=== PATIENT | female | born 1970 | race Caucasian/White ===

== ENCOUNTER → 2017-10-04 09:41 | Outpatient (CLI) | payer BC, SELFPAY ==
--- NOTE | 2017-10-04 09:55 | XR_ITS ---
XR ankle LT min 3V HISTORY: Follow-up fracture of the fibula ITS.REASON: LT DISTAL FIB FX ORDERING PHYSICIAN: Karla Waddell DPM PATIENT AGE: 47 years COMPARISON: 08/25/2017 FINDINGS: Some mild weightbearing views are performed. Fracture line of the distal fibula is somewhat less distinct consistent with healing. There is good alignment. Fracture line is still visible. IMPRESSION: Healing nondisplaced distal fibular fracture
[2017-10-04 11:27] LABS: Basophils # 0.1 K/mm3 (0-0.2); Basophils % 0.6 % (0.1-2.0); Eosinophils # 0.2 K/mm3 (0.0-0.4); Hematocrit 38.7 % (37.0-47.0); Hemoglobin 11.1 g/dL (12.2-16.2); Lymphocytes # 1.6 K/mm3 (0.7-4.5); Mean Corpuscular HGB Conc 28.6 g/dL (31.8-35.4); Mean Corpuscular Hemoglobin 21.3 pg (27.0-31.2); Mean Corpuscular Volume 74.3 fl (81-99); Mean Platelet Volume 7.4 fl (7.4-10.4); Monocytes # 0.3 K/mm3 (0.1-1.0); Monocytes % 4.5 % (1.7-9.3); Neutrophils # 5.3 K/mm3 (1.8-7.8); Neutrophils % 70.9 % (37.0-80.0); Platelet Count 411 K/mm3 (142-424); Red Blood Count 5.21 M/mm3 (4.20-5.40); Red Cell Distribution Width 16.2 % (11.5-17.5); White Blood Count 7.4 K/mm3 (4.8-10.8)
--- NOTE | 2017-10-04 11:31 | XR_ITS ---
XR chest 2V HISTORY: Hypertension ITS.REASON: HTN ORDERING PHYSICIAN: Karla Waddell DPM PATIENT AGE: 47 years COMPARISON: None available FINDINGS: The cardiomediastinal silhouette and pulmonary vascularity are within normal limits. The lungs are clear without infiltrates, suspicious nodules, or pleural effusions. No acute bony abnormalities. IMPRESSION: Negative chest, no acute finding
[2017-10-04 13:16] LABS: Anion Gap 9.2 mEq/L (5-15); Blood Urea Nitrogen 11 mg/dL (7-18); Carbon Dioxide 31 mmol/L (21.0-32.0); Chloride 104 mmol/L (98-107); Creatinine,Serum 0.69 mg/dL (0.55-1.02); Estimated Glomerular Filt Rate > 60 ml/min (>60); GFR (African American) > 60 ML/MIN (>60); Glucose 99 mg/dL (74-106); Potassium 4.2 mmoL/L (3.5-5.1); Sodium 140 mmol/L (136-145)
[2017-10-04 15:34] LABS: HCG Qualitative, Serum Negative (Negative)
[2017-10-05 17:19] LABS: Vitamin D 25 Hydroxy 36.2 ng/mL (30.0-100.0)
== END ==
PROVIDERS: PCP Internal Medicine Adolescent Medicine; Visit Provider Podiatrist
DX: S82.402A Unspecified fracture of shaft of left fibula, initial encounter for closed fracture (principal)
CPT/HCPCS: 36415; 71046; 73610; 80048; 82652; 84703; 85025; 93005

== ENCOUNTER 2017-10-05 08:36 | Day surgery (SDC) | payer BC, SELFPAY ==
[2017-10-04 11:48] VITALS: BMI 25.0
[2017-10-05] VITALS (11 sets, daily range): BP systolic 126–141; BP diastolic 79–94; PULSE 74–83; RESP 16–18; TEMP 36.2–43; O2SAT 96–100
--- NOTE | 2017-10-05 | XR_ITS ---
XR ankle LT 2V HISTORY: ITS.REASON: PINNING LT ANKLE ORDERING PHYSICIAN: Karla Waddell DPM PATIENT AGE: 47 years Fluoroscopy time: 26 seconds COMPARISON: None FINDINGS: Multiple images submitted during placement of the lateral bone plate of the distal fibula which is in good alignment. IMPRESSION: Fluoroscopy utilized for bone plate placement.
[2017-10-05 09:47] LABS: Urine Pregnancy, HCG Qual. Negative (Negative)
--- NOTE | 2017-10-05 12:01 | SUR.PREOP ---
Addendum entered by Italia Reardon RN 10/05/17 12:21: pt ambulatory with rolling knee scooter to bathroom and back to room. Original Note: 1100: checked on patient/family, both are doing well. no complaints voiced. 1200: Updated patient about wait time and surgery anticipation.
--- NOTE | 2017-10-05 12:59 | HMH.ANESCL ---
[facility] Anesthesia Checklist - Structural Data Admitted From: Home Planned Operative Procedure/s: orif l ankle fx Consent for Planned Operative Procedure(s) Verified: Yes Verified Documents: Surgical Consent - NPO Status Verified Time NPO: 12:00 - Chart Verification Results Verified: CBC - Additional verifications Anesthesia Reactions: No - Airway Assessment C-Spine Mobility Assessed: Yes TMJ Mobility Assessed: Yes Dentition: Good Dentition - Neurological Assessment Level of Consciousness: Awake, Alert Hx Seizures: No - Anesthesia Plan Anesthesia Risk discussed: Yes Anesthesia Plan: Verified ASA Class: I Anesthesia Type: General - Preoperative Comments Pre-Operative Comments: explained fem sciatic block, pt agrees and wants to proceed w block. 12:30 fem/sciatic block w n stim and versed 5mg. +results 0 complications [facility] Anesthesia HX I have reviewed the patient's past medical history: Yes Medical History: Reports:: Hypertension Denies:: Cancer, Diabetes Mellitus Type 1, Diabetes Mellitus Type 2, MRSA, Seizures Other Medical History: Denies: Blood Transfusion Reaction Other Surgeries: Yes: No Previous Surgery. No: Pacemaker Amputation: No Fractures: No *Family Hx:: Hyperlipidemia, Hypertension
--- NOTE | 2017-10-05 13:02 | P.PN_ITS ---
[facility] Anesthesia Checklist - Structural Data Admitted From: Home Planned Operative Procedure/s: orif l ankle fx Consent for Planned Operative Procedure(s) Verified: Yes Verified Documents: Surgical Consent - NPO Status Verified Time NPO: 12:00 - Chart Verification Results Verified: CBC - Additional verifications Anesthesia Reactions: No - Airway Assessment C-Spine Mobility Assessed: Yes TMJ Mobility Assessed: Yes Dentition: Good Dentition - Neurological Assessment Level of Consciousness: Awake, Alert Hx Seizures: No - Anesthesia Plan Anesthesia Risk discussed: Yes Anesthesia Plan: Verified ASA Class: I Anesthesia Type: General - Preoperative Comments Pre-Operative Comments: explained fem sciatic block, pt agrees and wants to proceed w block. 12:30 fem/sciatic block w n stim and versed 5mg. +results 0 complications [facility] Anesthesia HX I have reviewed the patient's past medical history: Yes Medical History: Reports:: Hypertension Denies:: Cancer, Diabetes Mellitus Type 1, Diabetes Mellitus Type 2, MRSA, Seizures Other Medical History: Denies: Blood Transfusion Reaction Other Surgeries: Yes: No Previous Surgery. No: Pacemaker Amputation: No Fractures: No *Family Hx:: Hyperlipidemia, Hypertension
--- NOTE | 2017-10-05 15:55 | XR_ITS ---
XR ankle LT min 3V HISTORY: Follow-up surgery ITS.REASON: postop xrays ORDERING PHYSICIAN: Karla Waddell DPM PATIENT AGE: 47 years COMPARISON: 10/04/2017 FINDINGS: Status post ORIF distal fibular fracture. A bone plate has been placed over the distal fibula stabilizing the transverse fracture with good alignment of the fracture fragment. There is a splint present posteriorly. IMPRESSION: Good alignment status post ORIF distal fibular fracture
--- NOTE | 2017-10-05 15:59 | HMH.ANESI ---
[facility] Anesthesia Record Part I Intake, IV Amount: 1,400 Estimated blood loss (mL): 0 Urine output (mL): 0 Blood Pressure: 138/86 SaO2: 96 Pulse Rate: 77 Respiratory Rate: 16 Temperature: 97.2 F Patient is:: Drowsy, Stable Stable to PACU at:: 15:55
--- NOTE | 2017-10-05 16:00 | HMH.ANESII ---
[facility] Anesthesia Record Part II Discharge Time: 16:25 Destination: [facility] PACU nurse assessment reviewed?: Yes Patient Condition:: Good Anesthesia Complications:: None
--- NOTE | 2017-10-05 16:01 | P.PN_ITS ---
[facility] Anesthesia Record Part II Discharge Time: 16:25 Destination: [facility] PACU nurse assessment reviewed?: Yes Patient Condition:: Good Anesthesia Complications:: None
--- NOTE | 2017-10-05 16:30 | HMH.OPNOTE ---
Date of procedure: 10/05/17 Pre-op Diagnosis:: 1. Left Distal Fibula Fracture 2. Left Deltoid Ligament Sprain Post-op diagnosis:: same Procedure performed:: 1. ORIF Left Distal Fibula Surgeon:: Karla Waddell DPM Registered Nurse Cardiovascular Icu:: Eulalio Burrows Anesthesia: GETA, regional Estimated blood loss (mL): 10 Clinical Note:: Ms. Magdaleno is a 47 y/o female who twisted her ankle 08/23/17. She was compliant, NWB in fracture boot with rolling knee scooter. But 09/18/17 she fell at home and twisted the ankle. She had new onset deltoid pain and worsening lateral ankle pain. X-rays taken 10/04/17 show the distal fibula fracture displaced. We discussed conservative versus surgical intervention. Conservative treatment discussed in great detail. We discussed surgery. All risks and benefits were discussed including but not limited to: damage to blood vessels and nerves, bleeding, infection, wound complications, delayed or non-union of bone, post-traumatic arthritis, need for further surgery, need for removal of the implant, prolonged swelling of the extremity, prolonged pain, RSD/CRPS, DVT, and anesthetic complications. No guarantees were given. All questions fully answered. The patient verbalized understanding and agreed to proceed with surgery. Consent was obtained. Operative findings:: Soft bone (vitamin D levels pending) Distal fibula transverse fracture Operative note:: On this date and time patient was deemed an appropriate surgical candidate. With informed consent signed, the patient was taken to the operating theater after pre-op femoral regional block given by the anesthesia team. The patient was positioned supine. General anesthesia was induced. Tourniquet was applied to the right mid calf. The right lower extremity was prepped and draped in normal sterile fashion. Left Ankle (Distal Fibula) Open Reduction Internal Fixation: Attention was directed to the lateral ankle where intra-op fluoroscopy was utilized to carlos anatomical landmarks. A linear incision was made over the lateral ankle. Dissection was carried thru skin and subcutaneous tissue with care taken to maintain surgical hemostasis and safely retract neurovascular structures. Dissection was then carried thru deep fascia to bone. The peroneal tendons were visible posteriorly and laterally, and safely retracted during procedure. The fibula was clearly visualized and the fracture was identified. The bone was soft and gapped 2 millimeters. The wound was flushed with copious amounts of normal sterile saline. A curette was used to debride the fibrosis tissue from the fracture site. At this point reduction forceps were utilized compressing the distal transverse fibula fracture. Intraoperative fluoroscopy was utilized to check pre-and post-reduction AP and lateral views. The fracture was too distal to fit a lag, intrafrag screw. A [facility] anatomic locking plate was applied and temporarily fixed. Again x-ray was used to check the reduction and adequate reduction was noted with alignment of the ankle joint. 3 nonlocking cortical screws were used to bring plate in close alignment to the bone. Next, 4 x locking screws were used to secure plate to the fibula. Intraoperative fluoroscopy was utilized once again to check position reduction it was deemed to be appropriate and stable. External stress test performed. No medial clear space or syndesmotic widening. The wound was flushed with copious amounts normal sterile saline. 2-0 Vicryl was then utilized to reapproximate the deep issue in a running fashion. 3-0 Vicryl was then used to reapproximate the subcutaneous layer in a running fashion. Amniotic graft was inserted over the peroneal tendons and after deep fascia closure. 4-0 Nylon was used to reapproximate the skin in an interrupted mattress fashion. The tourniquet was deflated at 40 minutes and immediate hyperemic response was noted to the digits. The wounds were cleansed. Xerofoam, dry sterile dress
== END 2017-10-05 17:10 | disposition home or self-care (01) ==
PROVIDERS: PCP Internal Medicine Adolescent Medicine; Visit Provider Podiatrist
PROC: (CPT 27792; principal; 2017-10-05 09:45)
DX: S82.832A Other fracture of upper and lower end of left fibula, initial encounter for closed fracture (principal); S93.422A Sprain of deltoid ligament of left ankle, initial encounter
CPT/HCPCS: 27792; 73600; 73610; 76000; 81025; 96374; C1713; C1762; C1776; J2405; J2704

== ENCOUNTER → 2017-10-18 08:45 | Outpatient (CLI) | payer BC, SELFPAY ==
--- NOTE | 2017-10-18 08:56 | XR_ITS ---
XR ankle LT min 3V HISTORY: ITS.REASON: S/P ORIF LT DISTAL FIBULA ORDERING PHYSICIAN: Karla Waddell DPM PATIENT AGE: 47 years COMPARISON: 10/05/2017 FINDINGS: Weightbearing views performed. Bone plate remains in place along the distal fibula with 7 screws with good alignment and no evidence of orthopedic complication. Splint remains in place. Fracture line itself is not well delineated possibly due to obscuration by the overlying splint IMPRESSION: Overall no change status post ORIF distal fibular fracture with good alignment.
== END ==
PROVIDERS: PCP Internal Medicine Adolescent Medicine; Visit Provider Podiatrist
DX: Z98.890 Other specified postprocedural states (principal)
CPT/HCPCS: 73610

== ENCOUNTER → 2017-10-30 09:13 | Outpatient (CLI) | payer BC, SELFPAY ==
--- NOTE | 2017-10-30 | XR_ITS ---
XR ankle LT min 3V HISTORY: Follow-up fracture/ORIF ITS.REASON: S/P ORIF LT ANKLE..PAIN ORDERING PHYSICIAN: Karla Waddell DPM PATIENT AGE: 47 years COMPARISON: 10/18/2017 FINDINGS: Good alignment status post ORIF distal fibular fracture with placement of bone plate and multiple screws. Fracture line is less apparent. IMPRESSION: Healing distal fibular fracture with good alignment status post ORIF.
== END ==
PROVIDERS: PCP Internal Medicine Adolescent Medicine; Visit Provider Podiatrist
DX: Z48.89 Encounter for other specified surgical aftercare (principal)
CPT/HCPCS: 73610

== ENCOUNTER → 2017-11-20 08:08 | Outpatient (CLI) | payer BC, SELFPAY ==
--- NOTE | 2017-11-20 | XR_ITS ---
XR ankle LT min 3V HISTORY: Follow-up ORIF ITS.REASON: POST OP PLATE AND SCREWS..PAIN ORDERING PHYSICIAN: Karla Waddell DPM PATIENT AGE: 47 years COMPARISON: 10/30/2017 FINDINGS: Weightbearing views are performed. Bone plate remains present at the distal fibula. Previously noted transverse fracture line is somewhat less apparent. There is good alignment. IMPRESSION: Healing distal fibular fracture status post ORIF
== END ==
PROVIDERS: Visit Provider Podiatrist
DX: Z98.890 Other specified postprocedural states (principal)
CPT/HCPCS: 73610

== ENCOUNTER → 2017-12-04 08:11 | Outpatient (CLI) | payer BC, SELFPAY ==
--- NOTE | 2017-12-04 08:12 | XR_ITS ---
XR ankle LT min 3V HISTORY: Follow-up ORIF left ankle ORDERING PHYSICIAN: Karla Waddell DPM PATIENT AGE: 47 years COMPARISON: 11/20/2017 FINDINGS: Bone plate is present over the lateral aspect of the distal fibula. Transverse fracture distal fibula with barely perceptible consistent with healing. IMPRESSION: Good alignment status post ORIF left healing fibular fracture
== END ==
PROVIDERS: Visit Provider Podiatrist
DX: Z98.890 Other specified postprocedural states (principal)
CPT/HCPCS: 73610

== ENCOUNTER 2018-01-01 08:00 | Outpatient (RCR) | payer BC, SELFPAY | END 2018-01-01 08:01 | disposition home or self-care (01) | LOC: PT 08:00 | PROVIDERS: Visit Provider Podiatrist | DX: S82.832D Other fracture of upper and lower end of left fibula, subsequent encounter for closed fracture with routine healing (principal) | CPT/HCPCS: 97010; 97014; 97016; 97110; 97112; 97140; G0283 ==

== ENCOUNTER → 2018-02-07 07:58 | Outpatient (CLI) | payer BC, SELFPAY ==
--- NOTE | 2018-02-07 07:58 | XR_ITS ---
XR ankle wt bearing LT min 3V CLINICAL INDICATION: Follow-up ORIF/fracture ITS.REASON: post operative views ORDERING PHYSICIAN: Karla Waddell DPM PATIENT AGE: 47 years COMPARISON: 12/04/2017 FINDINGS: Lateral bone plate remains in place at the distal fibula with good alignment. There remains a small transverse density at the distal fibula consistent with healing fracture. IMPRESSION: No change prior ORIF distal fibular fracture
== END ==
PROVIDERS: Visit Provider Podiatrist
DX: Z98.890 Other specified postprocedural states (principal)
CPT/HCPCS: 73610

== ENCOUNTER → 2018-02-07 08:47 | Outpatient (CLI) | payer BC, SELFPAY | PROVIDERS: Visit Provider Podiatrist | DX: Z98.890 Other specified postprocedural states (principal) ==

== ENCOUNTER → 2018-04-04 08:42 | Outpatient (CLI) | payer BC, SELFPAY ==
--- NOTE | 2018-04-04 08:46 | MM_ITS ---
MM Dig screening mamm BI w/CAD CAD Screening COMPARISON: Digital mammograms with CAD 12/19/2016 and 08/02/2015 INDICATION: There is a history of breast cancer patient maternal aunt diagnosed after menopause. TECHNIQUE: Standard CC and MLO images were obtained. R2 CAD reviewed. FINDINGS: Scattered fibro-glandular densities are seen throughout both breast. There is no new or suspicious lesion in either breast and no suspicious microcalcifications. IMPRESSION: Fibrofatty parenchyma no suspicious lesion seen BI-RADS Category: 1 Negative RECOMMENDED FOLLOW-UP: 1YR - 1 YEAR FOLLOW-UP (A letter has been sent to the patient regarding results of the study.)
[2018-04-04 09:31] LABS: Basophils # 0.1 K/mm3 (0-0.2); Basophils % 0.8 % (0.1-2.0); Eosinophils # 0.1 K/mm3 (0.0-0.4); Eosinophils % 2.3 % (0.1-12.0); Hematocrit 35.4 % (37.0-47.0); Hemoglobin 9.7 g/dL (12.2-16.2); Lymphocytes # 1.3 K/mm3 (0.7-4.5); Lymphocytes % 21.7 K/mm3 (10-50); Mean Corpuscular HGB Conc 27.3 g/dL (31.8-35.4); Mean Corpuscular Hemoglobin 19.7 pg (27.0-31.2); Mean Corpuscular Volume 72.3 fl (81-99); Mean Platelet Volume 7.1 fl (7.4-10.4); Monocytes # 0.4 K/mm3 (0.1-1.0); Monocytes % 5.8 % (1.7-9.3); Neutrophils # 4.2 K/mm3 (1.8-7.8); Neutrophils % 69.4 % (37.0-80.0); Platelet Count 412 K/mm3 (142-424); Red Cell Distribution Width 16.5 % (11.5-17.5); White Blood Count 6.1 K/mm3 (4.8-10.8)
[2018-04-04 10:36] LABS: Alanine Aminotransferase 25 U/L (12-78); Albumin Level 3.7 gm/dL (3.4-5.0); Albumin/Globulin Ratio 1.1 (1.1-1.8); Alkaline Phosphatase 93 U/L (46-116); Anion Gap 6.2 mEq/L (5-15); Aspartate Amino Transferase 21 U/L (15-37); Bilirubin,Total 0.3 mg/dL (0.2-1.0); Blood Urea Nitrogen 11 mg/dL (7-18); Calcium 8.9 mg/dL (8.5-10.1); Carbon Dioxide 32 mmol/L (21.0-32.0); Chloride 105 mmol/L (98-107); Chol/HDL Ratio 2.3 (1-3.5); Cholesterol 161 mg/dL (140-200); Creatinine,Serum 0.61 mg/dL (0.55-1.02); Estimated Glomerular Filt Rate 106 ml/min (>60); GFR (African American) 128 ML/MIN (>60); Globulin 3.5 gm/dl (1.3-3.2); Glucose 114 mg/dL (74-106); HDL Cholesterol 69 mg/dL (29-89); LDL Cholesterol 84 mg/dL (0-130); Potassium 4.2 mmoL/L (3.5-5.1); Sodium 139 mmol/L (136-145); Total Protein,Serum 7.2 gm/dL (6.4-8.2); Triglycerides 40 mg/dL (30-200); VLDL Cholesterol 8 mg/dL (0-40)
== END ==
PROVIDERS: PCP Internal Medicine Adolescent Medicine; Visit Provider Nurse Practitioner Obstetrics & Gynecology
DX: Z12.31 Encounter for screening mammogram for malignant neoplasm of breast (principal)
CPT/HCPCS: 36415; 77067; 80053; 80061; 85025

== ENCOUNTER → 2018-06-04 10:40 | Outpatient (CLI) | payer BC, SELFPAY ==
[2018-06-04 13:59] LABS: T4 (Thyroxine) 7.5 ug/dl (4.7-13.3); Triiodothryronine (T3) Uptake 33 % (31-39)
[2018-06-04 14:25] LABS: Free Thyroxine Index 2.5 ug/dL (5.93-13.13)
[2018-06-04 15:12] LABS: Thyroid Stimulating Hormone 1.26 uIU/ml (0.358-3.740)
[2018-06-05 10:24] LABS: FSH 4.5 mIU/mL (.); LH 6.4 mIU/mL (.)
== END ==
PROVIDERS: PCP Internal Medicine Adolescent Medicine; Visit Provider Nurse Practitioner Obstetrics & Gynecology
DX: N95.1 Menopausal and female climacteric states (principal)
CPT/HCPCS: 36415; 83001; 83002; 84436; 84443; 84479

== ENCOUNTER → 2019-01-27 09:40 | Outpatient (CLI) | payer BC, SELFPAY ==
[2019-01-27 10:00] LABS: Basophils # 0.1 K/mm3 (0-0.2); Basophils % 0.7 % (0.1-2.0); Eosinophils # 0.2 K/mm3 (0.0-0.4); Eosinophils % 2.2 % (0.1-12.0); Hematocrit 44.9 % (37.0-47.0); Hemoglobin 15.1 g/dL (12.2-16.2); Lymphocytes # 1.4 K/mm3 (0.7-4.5); Mean Corpuscular HGB Conc 33.7 g/dL (31.8-35.4); Mean Corpuscular Hemoglobin 29.8 pg (27.0-31.2); Mean Corpuscular Volume 88.2 fl (81-99); Monocytes # 0.3 K/mm3 (0.1-1.0); Monocytes % 4.5 % (1.7-9.3); Neutrophils # 5.1 K/mm3 (1.8-7.8); Neutrophils % 72.5 % (37.0-80.0); Platelet Count 337 K/mm3 (142-424); Red Blood Count 5.09 M/mm3 (4.20-5.40); Red Cell Distribution Width 12.4 % (11.5-17.5); White Blood Count 7.1 K/mm3 (4.8-10.8)
[2019-01-27 11:36] LABS: Alanine Aminotransferase 33 U/L (12-78); Albumin/Globulin Ratio 1.1 (1.1-1.8); Alkaline Phosphatase 106 U/L (46-116); Anion Gap 8.2 mEq/L (5-15); Aspartate Amino Transferase 18 U/L (15-37); Bilirubin,Total 0.7 mg/dL (0.2-1.0); Blood Urea Nitrogen 12 mg/dL (7-18); Calcium 9.3 mg/dL (8.5-10.1); Carbon Dioxide 32 mmol/L (21.0-32.0); Chloride 104 mmol/L (98-107); Chol/HDL Ratio 2.4 (1-3.5); Cholesterol 152 mg/dL (140-200); Creatinine,Serum 0.67 mg/dL (0.55-1.02); Estimated Glomerular Filt Rate 94 ml/min (>60); GFR (African American) 114 ML/MIN (>60); Globulin 3.5 gm/dl (1.3-3.2); Glucose 98 mg/dL (74-106); HDL Cholesterol 63 mg/dL (29-89); LDL Cholesterol 80 mg/dL (0-130); Potassium 4.2 mmoL/L (3.5-5.1); Sodium 140 mmol/L (136-145); Thyroid Stimulating Hormone 1.08 uIU/ml (0.358-3.740); Total Protein,Serum 7.5 gm/dL (6.4-8.2); Triglycerides 47 mg/dL (30-200); VLDL Cholesterol 9 mg/dL (0-40)
[2019-01-28 08:49] LABS: Iron 148 ug/dL (27-159); Iron Saturation 55 % (15-55); UIBC 121 ug/dL (131-425)
[2019-01-28 10:14] LABS: FSH 91.6 mIU/mL (.); LH 65.9 mIU/mL (.)
== END ==
PROVIDERS: Visit Provider Nurse Practitioner Family
DX: I10 Essential (primary) hypertension (principal); E78.5 Hyperlipidemia, unspecified; N92.6 Irregular menstruation, unspecified; D50.0 Iron deficiency anemia secondary to blood loss (chronic)
CPT/HCPCS: 36415; 80053; 80061; 83001; 83002; 83540; 83550; 84443; 85025

== ENCOUNTER → 2019-05-09 10:36 | Outpatient (CLI) | payer BC, SELFPAY ==
--- NOTE | 2019-05-09 10:38 | MM_ITS ---
MM Dig screening mamm BI w/CAD ORDERING PHYSICIAN : Clemente Mcgregor MD PATIENT AGE: 49 years GENDER: Female COMPARISON: March 2018, November 2016, August 2015 . HISTORY. No hormones no new complaints Family history. Maternal with breast cancer in her 50s TECHNIQUE: Standard CC and MLO images were obtained. Additional axillary cc view left breast included R2 CAD reviewed. FINDINGS: . Mild to moderate residual fibroglandular elements at scattered throughout the central and superior breast. No dominant or suspicious mass. Stable minor asymmetry.. Stable architecture No significant appearing new findings. No suspicious calcifications. . CAD computer review review highlights no new areas of concern either. . Follow-up in one year recommended IMPRESSION: ... Stable bilateral mammogram. No significant new findings either breast. Bilateral follow-up in one year recommended BI-RADS Category: 1 Negative RECOMMENDED FOLLOW-UP: 1YR 1 YEAR FOLLOW-UP (A letter has been sent to the patient regarding results of the study.)
== END ==
PROVIDERS: PCP Internal Medicine Adolescent Medicine; Visit Provider Nurse Practitioner Obstetrics & Gynecology
DX: Z12.31 Encounter for screening mammogram for malignant neoplasm of breast (principal)
CPT/HCPCS: 77067

== ENCOUNTER → 2020-05-04 13:08 | Outpatient (CLI) | payer BC, SELFPAY ==
[2020-05-04 14:23] LABS: Basophils # 0.1 K/mm3 (0-0.2); Basophils % 0.8 % (0.1-2.0); Eosinophils # 0.2 K/mm3 (0.0-0.4); Eosinophils % 2.6 % (0.1-12.0); Hematocrit 48.8 % (37.0-47.0); Lymphocytes # 1.6 K/mm3 (0.7-4.5); Lymphocytes % 24.4 % (10-50); Mean Corpuscular HGB Conc 34.8 g/dL (31.8-35.4); Mean Corpuscular Hemoglobin 31.1 pg (27.0-31.2); Mean Corpuscular Volume 89.5 fl (81-99); Monocytes # 0.3 K/mm3 (0.1-1.0); Monocytes % 3.7 % (1.7-9.3); Neutrophils # 4.5 K/mm3 (1.8-7.8); Neutrophils % 68.5 % (37.0-80.0); Platelet Count 362 K/mm3 (142-424); Red Blood Count 5.46 M/mm3 (4.20-5.40); Red Cell Distribution Width 12.3 % (11.5-17.5); White Blood Count 6.6 K/mm3 (4.8-10.8)
[2020-05-04 14:29] LABS: Chloride 97 mmol/L (98-107)
[2020-05-04 14:30] LABS: Potassium 3.9 mmoL/L (3.5-5.1); Sodium 140 mmol/L (136-145)
[2020-05-04 14:32] LABS: Alanine Aminotransferase 26 U/L (12-78); Aspartate Amino Transferase 34 U/L (14-36); Blood Urea Nitrogen 11 mg/dl (7-17); Estimated Glomerular Filt Rate 89 ml/min (>60); GFR (African American) 108 ML/MIN (>60)
[2020-05-04 14:33] LABS: Albumin Level 4.6 g/dl (3.5-5.0); Albumin/Globulin Ratio 1.4 (1.1-1.8); Alkaline Phosphatase 103 U/L (38-126); Anion Gap 12.9 mEq/L (5-15); Bilirubin,Total 0.8 mg/dl (0.2-1.3); Carbon Dioxide 34 mmol/L (22.0-30.0); Globulin 3.2 g/dL (1.3-3.2); Glucose 95 mg/dl (74-100); Total Protein,Serum 7.8 g/dl (6.3-8.2)
== END ==
PROVIDERS: Visit Provider Internal Medicine Adolescent Medicine
DX: D50.0 Iron deficiency anemia secondary to blood loss (chronic) (principal); I10 Essential (primary) hypertension
CPT/HCPCS: 36415; 80053; 85025

== ENCOUNTER → 2020-05-27 09:14 | Outpatient (CLI) | payer BC, SELFPAY ==
--- NOTE | 2020-05-27 09:15 | MM_ITS ---
PROCEDURE: MM DIG SCREENING MAMM BI W/CAD Digital Breast Tomosynthesis Included CLINICAL INDICATION: screening xmg There is a history of breast cancer in the patient's maternal aunt. COMPARISON: MG [facility] DIG MAMM-SCREEN RAYNE W/CAD from 12/19/2016 [facility] MM Dig screening mamm BI w/CAD from 04/04/2018 MG DIG MAMM-SCREEN RAYNE from 05/09/2019 TECHNIQUE: Standard CC and MLO images and 3D Tomosynthesis was obtained. R2 CAD reviewed. FINDINGS: Scattered fibroglandular densities are seen in both breast. The findings are fairly symmetrical bilaterally. There is no suspicious lesion and no suspicious microcalcifications. IMPRESSION: Fibrofatty parenchyma with no suspicious lesions seen BI-RAD Category: 1 Negative FOLLOW-UP: 1YR 1 Year Follow-up (A letter has been sent to the patient regarding results of the study.) Dictated by: Dr. Cuate Curran MD 05/29/2020 19:51 Dr. Cuate Curran MD in [place] 05/29/2020 19:51
== END ==
PROVIDERS: PCP Internal Medicine Adolescent Medicine; Visit Provider Nurse Practitioner Obstetrics & Gynecology
DX: Z12.31 Encounter for screening mammogram for malignant neoplasm of breast (principal)
CPT/HCPCS: 77063; 77067

== ENCOUNTER → 2021-06-07 07:50 | Outpatient (CLI) | payer BC, SELFPAY ==
--- NOTE | 2021-06-07 07:50 | MM_ITS ---
PROCEDURE: MM DIG SCREENING MAMM BI W/CAD Digital Breast Tomosynthesis Included CLINICAL INDICATION: screening xmg COMPARISON: MG [facility] MM Dig screening mamm BI w/CAD from 04/04/2018 MG MM DIG SCREENING MAMM BI W/CAD from 05/09/2019 MG MM DIG SCREENING MAMM BI W/CAD from 05/27/2020 TECHNIQUE: Standard CC and MLO images and 3D Tomosynthesis was obtained. R2 CAD reviewed. FINDINGS: There are scattered areas of fibroglandular density No suspicious appearing mass, malignant-appearing microcalcification, architectural distortion, or skin thickening.. No significant change with no evidence of malignancy. IMPRESSION: Negative BI-RAD Category: 1 Negative FOLLOW-UP: 1 YR 1 Year Follow-up (A letter has been sent to the patient regarding results of the study.) Dictated by: Andi Granados MD 06/17/2021 10:23 Andi Granados MD in [place] 06/17/2021 10:23
== END ==
PROVIDERS: PCP Internal Medicine Adolescent Medicine; Visit Provider Nurse Practitioner Obstetrics & Gynecology
DX: Z12.31 Encounter for screening mammogram for malignant neoplasm of breast (principal)
CPT/HCPCS: 77063; 77067

== ENCOUNTER → 2021-07-11 08:53 | Outpatient (CLI) | payer BC, SELFPAY ==
[2021-07-11 09:15] LABS: Basophils # 0.1 K/mm3 (0-0.2); Basophils % 0.9 % (0.1-2.0); Eosinophils # 0.2 K/mm3 (0.0-0.4); Eosinophils % 2.2 % (0.1-12.0); Hematocrit 48.4 % (37.0-47.0); Hemoglobin 15.8 g/dL (12.2-16.2); Lymphocytes # 1.8 K/mm3 (0.7-4.5); Lymphocytes % 24.1 % (10-50); Mean Corpuscular HGB Conc 32.6 g/dL (31.8-35.4); Mean Corpuscular Hemoglobin 29.9 pg (27.0-31.2); Mean Corpuscular Volume 91.5 fl (81-99); Mean Platelet Volume 7.9 fl (7.4-10.4); Monocytes # 0.3 K/mm3 (0.1-1.0); Monocytes % 4.2 % (1.7-9.3); Neutrophils # 5.3 K/mm3 (1.8-7.8); Neutrophils % 68.7 % (37.0-80.0); Platelet Count 361 K/mm3 (142-424); Red Blood Count 5.29 M/mm3 (4.20-5.40); Red Cell Distribution Width 12.7 % (11.5-17.5); White Blood Count 7.7 K/mm3 (4.8-10.8)
[2021-07-11 11:42] LABS: Alanine Aminotransferase 27 U/L (12-78); Albumin/Globulin Ratio 1.4 (1.1-1.8); Alkaline Phosphatase 96 U/L (38-126); Anion Gap 8.9 mEq/L (5-15); Aspartate Amino Transferase 32 U/L (14-36); Bilirubin,Total 0.5 mg/dl (0.2-1.3); Blood Urea Nitrogen 14 mg/dl (7-17); Calcium 9.5 mg/dl (8.4-10.2); Carbon Dioxide 33 mmol/L (22.0-30.0); Chloride 104 mmol/L (98-107); Estimated Glomerular Filt Rate 131 ml/min (>60); GFR (African American) 158 ML/MIN (>60); Globulin 2.9 g/dL (1.3-3.2); Glucose 109 mg/dl (74-100); Potassium 3.9 mmoL/L (3.5-5.1); Sodium 142 mmol/L (136-145); Total Protein,Serum 6.9 g/dl (6.3-8.2)
== END ==
PROVIDERS: Visit Provider Internal Medicine Adolescent Medicine
DX: I10 Essential (primary) hypertension (principal); D50.0 Iron deficiency anemia secondary to blood loss (chronic)
CPT/HCPCS: 36415; 80053; 85025

== ENCOUNTER → 2021-09-15 09:06 | Outpatient (CLI) | payer BC, SELFPAY ==
--- NOTE | 2021-09-15 09:09 | XR_ITS ---
PROCEDURE: XR HAND RT MIN 3V CLINICAL INDICATION: ACUTE PAIN DUE TO TRAUMS, CONTUSION OF RT LITTLE FINGER COMPARISON: No exams were available for comparison FINDINGS: Nondisplaced oblique fracture involves mid shaft 5th phalanx.. No lytic or blastic change. There is normal mineralization. The joint spaces are well-preserved. No significant degenerative/arthritic changes. No erosive changes evident. Other findings:None. IMPRESSION: Nondisplaced oblique fracture proximal phalanx of the right hand Dictated by: Andi Granados MD 09/15/2021 12:27 Andi Granados MD in [place] 09/15/2021 12:27
== END ==
PROVIDERS: PCP Internal Medicine Adolescent Medicine; Visit Provider Nurse Practitioner Family
DX: S60.051A Contusion of right little finger without damage to nail, initial encounter (principal); G89.11 Acute pain due to trauma
CPT/HCPCS: 73130

== ENCOUNTER 2021-09-16 12:12 | Emergency (ER) | payer OTHER, SELFPAY ==
[2021-09-16 12:23] VITALS: BP 158/95; PULSE 86; RESP 18; TEMP 36.8; O2SAT 99; BMI 25.0
[2021-09-16 12:55] VITALS: BP 145/85; PULSE 82; O2SAT 98
--- NOTE | 2021-09-16 13:16 | XR_ITS ---
PROCEDURE: XR HAND LT 2V CLINICAL INDICATION: injury COMPARISON: CR XR HAND RT MIN 3V from 09/15/2021 FINDINGS: No fracture or dislocation. No lytic or blastic change. There is normal mineralization. The joint spaces are well-preserved. No significant degenerative/arthritic changes. No erosive changes evident. Other findings:None. IMPRESSION: No acute findings. Dictated by: Andi Granados MD 09/16/2021 14:29 Andi Granados MD in [place] 09/16/2021 14:29
[2021-09-16 13:30] VITALS: BP 144/91; PULSE 81; O2SAT 100
--- NOTE | 2021-09-16 15:00 | HMH.EDGENADL ---
ED Disposition Clinical Impression: Injury of flexor tendon of hand Qualifiers: Encounter type: initial encounter Laterality: left Qualified Code(s): S66.802A - Unspecified injury of other specified muscles, fascia and tendons at wrist and hand level, left hand, initial encounter Disposition: Home, Self-Care Condition on Discharge: Good Additional Instructions: Please keep your splint clean and dry. Follow up on Sunday at orthopaedic hand clinic. Please call first thing Sunday morning to schedule an appointment. If you are unable, please present as a walk in as early in the morning as possible. Hand clinic phone number: [phone]. If your condition worsens or other concerns arise, please return to the emergency department. Referrals: Alexx Mo MD [Primary Care Provider] - - Critical Care Critical Care Time: No Attestation: On 09/16/21, the high probability of a clinically significant, sudden or life threatening deterioration of the following system(s) required my full and direct attention, intervention and personal management. The time I documented below is in addition to time spent performing reported procedures but includes the following listed in this critical care notation. Medical Decision Making - Medical Records Medical records reviewed: Yes: I reviewed the patient's medical records. - [place] Inquiry Pt receiving controlled substance: No Vital Signs: 09/16/21 12:23 09/16/21 12:55 09/16/21 13:30 Temperature 98.3 F Temperature Source Oral Pulse Rate 82 81 Pulse Rate [Right Radial] 86 Respiratory Rate 18 Blood Pressure 145/85 H 144/91 H Blood Pressure [Right Arm] 158/95 H Blood Pressure Mean [Right Arm] 116 Blood Pressure Source [Right Arm] Automatic Cuff Blood Pressure Position [Right Arm] Sitting 02 Sat by Pulse Oximetry 99 98 100 Oxygen Delivery Method Room Air 09/16/21 18:12 Temperature 98.3 F Temperature Source Pulse Rate 84 Pulse Rate [Right Radial] Respiratory Rate 18 Blood Pressure 138/87 Blood Pressure [Right Arm] Blood Pressure Mean [Right Arm] Blood Pressure Source [Right Arm] Blood Pressure Position [Right Arm] 02 Sat by Pulse Oximetry Oxygen Delivery Method Orders (Tests/Meds): ED MEDICATIONS Discontinued Medications Generic Name Dose Route Start Last Admin Trade Name Freq PRN Reason Stop Dose Admin Acetaminophen 500 mg 09/16/21 12:37 09/16/21 12:37 Acetaminophen 500mg Tab PO 09/16/21 12:38 500 mg ONCE ONE Administration Ibuprofen 400 mg 09/16/21 13:18 09/16/21 14:22 Ibuprofen 400 Mg Tablet PO 09/16/21 13:19 400 mg ONCE ONE Administration - Radiology Data #1 XR left hand: FINDINGS: No fracture or dislocation. No lytic or blastic change. There is normal mineralization. The joint spaces are well-preserved. No significant degenerative/arthritic changes. No erosive changes evident. Other findings:None. IMPRESSION: No acute findings. Medical Decision Narrative: Patient is a 51-year-old female presenting with a injury to the left ring finger associate with a laceration. Differential diagnosis includes, but is not limited to, fracture, tendon injury, soft tissue injury, laceration. Exam shows motor deficit at the DIP joint associated with a laceration between PIP and DIP joints. He was evaluated and x-ray which is negative for acute findings. Patient was treated with p.o. ibuprofen and Tylenol. On reassessment, patient is still unable to flex her DIP joint and has difficulty with PIP and MCP flexion. Laceration was repaired with suture and patient was splinted in an ulnar gutter splint. Patient was discussed with orthopedist on-call and referred to hand clinic for reassessment. Patient will be able to get a follow-up appointment on Sunday. Patient was counseled regarding return precautions and discharged in a stable condition. General Adult HPI - General Chief complaint: Ex
[2021-09-16 18:12] VITALS: BP 138/87; PULSE 84; RESP 18; TEMP 36.8; O2SAT 98
== END 2021-09-16 18:15 | disposition home or self-care (01) ==
PROVIDERS: Emergency Provider Emergency Medicine; PCP Internal Medicine Adolescent Medicine
DX: S61.215A Laceration without foreign body of left ring finger without damage to nail, initial encounter (principal); W31.9XXA Contact with unspecified machinery, initial encounter; Y92.63 Factory as the place of occurrence of the external cause; Y99.0 Civilian activity done for income or pay
CPT/HCPCS: 12001; 73120; 99282

== ENCOUNTER 2021-11-09 10:00 | Outpatient (RCR) | payer OTHER, SELFPAY | END 2021-11-09 10:05 | disposition home or self-care (01) | LOC: OT 10:00 | PROVIDERS: Visit Provider Orthopaedic Surgery Hand Surgery | DX: S66.50 Unspecified injury of intrinsic muscle, fascia and tendon of other and unspecified finger at wrist and hand level (principal) | CPT/HCPCS: 97010; 97014; 97035; 97110; 97140; 97165; 97530; G0283 ==

== ENCOUNTER 2022-03-16 11:16 | Emergency (ER) | payer BC, OTHER, SELFPAY ==
[2022-03-16 11:20] VITALS: BP 144/91; PULSE 91; RESP 19; TEMP 36.9; O2SAT 98; BMI 25.4
[2022-03-16 11:35] VITALS: BP 144/91; PULSE 91; RESP 19; TEMP 36.9; O2SAT 98
[2022-03-16 11:36] LABS: Adenovirus,PCR Not Detected (NotDetected); Bordetella Pertussis Not Detected (NotDetected); Chlamydophila Pneumoniae, PCR Not Detected (NotDetected); Coronavirus 229E Not Detected (NotDetected); Coronavirus NL63 Not Detected (NotDetected); Coronavirus OC43 Not Detected (NotDetected); Coronovirus HKU1,PCR Not Detected (NotDetected); Human Metapneumovirus Not Detected (NotDetected); Influenza A, PCR Not Detected (NotDetected); Influenza AH1, 2009 Not Detected (NotDetected); Influenza AH1, PCR Not Detected (NotDetected); Influenza AH3,PCR Not Detected (NotDetected); Influenza B, PCR Not Detected (NotDetected); Mycoplasma Pneumoniae, PCR Not Detected (NotDetected); Parainfluenza 1, PCR Not Detected (NotDetected); Parainfluenza 2, PCR Not Detected (NotDetected); Parainfluenza 3, PCR Not Detected (NotDetected); Parainfluenza 4, PCR Not Detected (NotDetected); Respiratory Syncytial Virus Not Detected (NotDetected); Rhinovirus/Enterovirus Not Detected (NotDetected)
--- NOTE | 2022-03-16 11:39 | HMH.EDUTC ---
[facility] [place] Disposition Clinical Impression: Strep sore throat Disposition: Home, Self-Care Condition on Discharge: Good Instructions: DI for Strep Throat Additional Instructions: Start antibiotics today be sure to take it as ordered with the full length of time although you should start feeling better in 24-48 hours. Change toothbrush and toothpaste 24-48 hours after starting antibiotics Tylenol or Motrin as needed for fever or pain Encourage fluids, water, Gatorade, Powerade, try cold fluids, popsicles, ice cream will make it feel better You are contagious for 24 hours. Avoid kissing anyone, no eating or drinking after anyone. You are contagious. Follow-up the ER for new or worsening symptoms or no noticeable improvement over the next 24-48 hours. Follow-up with PCP this week. covid swab was sent to lab, call tomorrow for results. self isolate until test results are known to be negative Prescriptions: Azithromycin [Zithromax 250mg tab] 250 mg PO DIRECTED #6 tab Transmission Status: Pending to [id number] Referrals: Alexx Mo MD [Primary Care Provider] - Time of Disposition: 11:45 Medical Decision Making - [place] Inquiry Pt receiving controlled substance: No Vital Signs: 03/16/22 11:20 03/16/22 11:35 Temperature 98.5 F 98.5 F Temperature Source Oral Pulse Rate 91 H Pulse Rate [Left Brachial] 91 H Respiratory Rate 19 19 Blood Pressure 144/91 H Blood Pressure [Left Arm] 144/91 H Blood Pressure Mean [Left Arm] 108 Blood Pressure Source [Left Arm] Automatic Cuff Blood Pressure Position [Left Arm] Sitting 02 Sat by Pulse Oximetry 98 Oxygen Delivery Method Room Air Orders (Tests/Meds): ORDERS Category Date Time Status Full Resp Panel w/COVID ([facility]) Routine Lab 03/16/22 11:30 Received Rapid Strep Scrn Group A [Strep Scrn Group A (Rapid)] Lab 03/16/22 11:30 Received Stat [facility] [place] HPI - General Chief complaint: Urgent Treatment Center Stated complaint: head congestion, sore throat, chills/sweats Time Seen by Provider: 03/16/22 11:39 Mode of Arrival: Ambulatory Source of Information: Patient Limitations: No Limitations Description of Symptoms (Recalled from Triage Doc. by RN): PATIENT C/O SCRATCHY THROAT, BODY ACHES AND CHILLS SINCE LAST NIGHT HEENT Symptoms (Recalled from RN notes): Yes Resp Symptoms (Recalled from RN notes): No Skin Symptoms (Recalled from RN notes): No MS Symptoms (Recalled from RN notes): No Functional Status (Recalled from RN notes): WNL - History of Present Illness Provider Complaint: 51 yr old female presents for sore throat,chills,body aches and fever since last pm. no ill contacts - Related Data Home Medications Medication Instructions Recorded Confirmed Atorvastatin Calcium [Atorvastatin 20 mg PO DAILY 10/05/17 09/11/19 20mg Tab] hydroCHLOROthiazide [HCTZ 25mg 25 mg PO DAILY 10/05/17 09/11/19 tab] hepatitis A virus vaccine (PF) IM #1 ml 09/11/19 09/11/19 1,440 BINU unit/mL intramuscular syringe Previous Rx's Medication Instructions Recorded ferrous sulfate 325 mg (65 mg 325 mg PO DAILY #30 tab 04/09/18 iron) tablet multivitamin,xf-gtal-lqflfbca 1 tab PO DAILY #30 tab 04/09/18 nitrofurantoin macrocrystal 100 mg 100 mg PO BID 5 Days #10 cap 09/06/19 capsule Azithromycin [Zithromax 250mg 250 mg PO DIRECTED #6 tab 03/16/22 tab] Allergies Allergy/AdvReac Type Severity Reaction Status Date / Time No Known Allergies Allergy Verified 03/16/22 11:35 - Worker's Comp Is this a Worker's Comp case?: No [facility] History - Hepatitis A Screen Attestation statement:: This patient has been screened for Hepatitis A risk factors. I have reviewed the patient's past medical history: Yes Medical History: Reports:: Hyperlipidemia, Hypertension Denies:: Cancer, Diabetes Mellitus Type 1, Diabetes Mellitus Type 2, Internal Pacemaker, MRSA, Seizures Other Medical History: Denies: Blood Transfus
[2022-03-16 11:54] LABS: Strep Scrn Group A (Rapid) Negative (Negative)
[2022-03-16 13:43] LABS: Coronavirus 19, PCR Detected (NotDetected)
== END 2022-03-16 11:47 | disposition home or self-care (01) ==
PROVIDERS: Emergency Provider Nurse Practitioner Family; PCP Internal Medicine Adolescent Medicine
DX: U07.1 COVID-19 (principal); J02.9 Acute pharyngitis, unspecified; R61 Generalized hyperhidrosis; I10 Essential (primary) hypertension; E78.5 Hyperlipidemia, unspecified; M79.10 Myalgia, unspecified site; Z83.438 Family history of other disorder of lipoprotein metabolism and other lipidemia
CPT/HCPCS: 87430; 87581; 87632; 87798; 99213; C9803; G0463; U0003; U0005

== ENCOUNTER → 2022-07-19 09:44 | Outpatient (CLI) | payer BC, OTHER, SELFPAY ==
--- NOTE | 2022-07-19 09:48 | MM_ITS ---
PROCEDURE INFORMATION: Exam: MG Bilateral Screening 3D Mammography Exam date and time: 07/19/2022 9:46 AM Age: 52 years old Clinical indication: Screening. A maternal aunt had breast cancer. TECHNIQUE: Imaging protocol: Bilateral Screening tomosynthesis and 2D mammography including computer-aided detection (CAD) when performed. COMPARISON: 1. MG MM DIG SCREENING MAMM BI W/CAD 06/07/2021 8:04 AM 2. MG MM DIG SCREENING MAMM BI W/CAD 05/27/2020 9:29 AM 3. MG MM DIG SCREENING MAMM BI W/CAD 05/09/2019 10:58 AM 4. MG SCBI MM Dig screening mamm BI w/CAD 04/04/2018 9:04 AM FINDINGS: MAMMOGRAPHY: Breast composition: There are scattered areas of fibroglandular density. Mass: None. Architectural distortion: None. Calcifications: No suspicious calcifications. Asymmetric density: None. Skin thickening: None. Axillary adenopathy: None. IMPRESSION: No mammographic evidence of malignancy. Annual screening is recommended unless otherwise clinically indicated. ASSESSMENT: BI-RADS Category 1: Negative
== END ==
PROVIDERS: PCP Internal Medicine Adolescent Medicine; Visit Provider Nurse Practitioner Obstetrics & Gynecology
DX: Z12.31 Encounter for screening mammogram for malignant neoplasm of breast (principal)
CPT/HCPCS: 77063; 77067

== ENCOUNTER → 2022-09-28 09:38 | Outpatient (CLI) | payer BC, OTHER, SELFPAY ==
[2022-09-28 10:24] LABS: Basophils # 0.1 K/mm3 (0-0.2); Eosinophils # 0.2 K/mm3 (0.0-0.4); Eosinophils % 2.5 % (0.1-12.0); Hematocrit 45.5 % (37.0-47.0); Hemoglobin 14.6 g/dL (12.2-16.2); Lymphocytes # 1.7 K/mm3 (0.7-4.5); Mean Corpuscular Hemoglobin 29.3 pg (27.0-31.2); Mean Corpuscular Volume 91.6 fl (81-99); Mean Platelet Volume 7.8 fl (7.4-10.4); Monocytes # 0.4 K/mm3 (0.1-1.0); Monocytes % 5.4 % (1.7-9.3); Neutrophils # 4.5 K/mm3 (1.8-7.8); Neutrophils % 66.1 % (37.0-80.0); Platelet Count 413 K/mm3 (142-424); Red Blood Count 4.97 M/mm3 (4.20-5.40); White Blood Count 6.7 K/mm3 (4.8-10.8)
[2022-09-28 10:28] LABS: Chloride 100 mmol/L (98-107); Potassium 3.5 mmoL/L (3.5-5.1); Sodium 141 mmol/L (136-145)
[2022-09-28 10:30] LABS: Blood Urea Nitrogen 12 mg/dl (7-17); Estimated Glomerular Filt Rate 105 ml/min (>60); GFR (African American) 128 ML/MIN (>60)
[2022-09-28 10:31] LABS: Alanine Aminotransferase 36 U/L (12-78); Albumin/Globulin Ratio 1.5 (1.1-1.8); Alkaline Phosphatase 118 U/L (38-126); Anion Gap 10.5 mEq/L (5-15); Aspartate Amino Transferase 33 U/L (14-36); Bilirubin,Total 0.7 mg/dl (0.2-1.3); Calcium 9.2 mg/dl (8.4-10.2); Carbon Dioxide 34 mmol/L (22.0-30.0); Cholesterol 187 mg/dl (140-200); Globulin 2.6 g/dL (1.3-3.2); Glucose 97 mg/dl (74-100); Total Protein,Serum 6.6 g/dl (6.3-8.2); Triglycerides 88 mg/dl (30-150); VLDL Cholesterol 18 mg/dL (0-40)
[2022-09-28 10:32] LABS: Chol/HDL Ratio 3.4 (1-3.5); HDL Cholesterol 55 mg/dl (40-60)
[2022-09-28 10:42] LABS: Direct LDL Cholesterol 91.57 mg/dL (100-129)
== END ==
PROVIDERS: PCP Nurse Practitioner Family; Visit Provider Nurse Practitioner Family
DX: Z00.00 Encounter for general adult medical examination without abnormal findings (principal); Z86.2 Personal history of diseases of the blood and blood-forming organs and certain disorders involving the immune mechanism
CPT/HCPCS: 36415; 80053; 80061; 85025

== ENCOUNTER 2024-02-12 07:52 | Outpatient (CLI) | payer BC, OTHER, SELFPAY ==
--- NOTE | 2024-02-12 08:35 | MM_ITS ---
PROCEDURE INFORMATION: Exam: MG Bilateral Screening 3D Mammography Exam date and time: 02/12/2024 8:30 AM Age: 53 years old Clinical indication: Screening mammogram TECHNIQUE: Imaging protocol: Bilateral Screening tomosynthesis and 2D mammography including computer-aided detection (CAD) when performed. COMPARISON: 1. MG MM DIG SCREENING MAMM BI W/CAD 07/19/2022 9:46 AM 2. MG MM DIG SCREENING MAMM BI W/CAD 06/07/2021 8:04 AM 3. MG MM DIG SCREENING MAMM BI W/CAD 05/27/2020 9:29 AM 4. MG MM DIG SCREENING MAMM BI W/CAD 05/09/2019 10:58 AM FINDINGS: MAMMOGRAPHY: Breast composition: There are scattered areas of fibroglandular density. Mass: None. Architectural distortion: No new or suspicious architectural distortion. Calcifications: No new or suspicious calcifications are present Asymmetric density: No new or suspicious asymmetric density is present Skin thickening: None. Axillary adenopathy: None. IMPRESSION: No mammographic evidence of malignancy. Recommend annual screening mammography unless otherwise clinically indicated. ASSESSMENT: BI-RADS category 1: Negative.
== END 2024-02-12 23:59 | disposition home or self-care (01) ==
LOC: RAD 07:53
PROVIDERS: PCP Internal Medicine Adolescent Medicine; Visit Provider Internal Medicine Adolescent Medicine
DX: Z12.31 Encounter for screening mammogram for malignant neoplasm of breast (principal)
CPT/HCPCS: 77063; 77067

== ENCOUNTER 2024-07-17 08:48 | Day surgery (SDC) | payer BC, OTHER, SELFPAY ==
[2024-07-16 11:20] VITALS: BMI 26.6
[2024-07-17 08:59] VITALS: BP 148/95; PULSE 82; RESP 16; TEMP 37.1; O2SAT 100
[2024-07-17] MEDS: LACTATED RINGERS 1000ML 1,000 ML 25 ML IV (09:04)
--- NOTE | 2024-07-17 09:16 | P.PNANES_ITS ---
[facility] Disclaimer: The information contained in this section may have been updated after the patient was seen, as this information can be updated by other users. Medical History (Updated 07/17/24 @ 10:01 by Jimmy Gutierrez II, MD) Hyperlipidemia Hypertension No significant medical problems Surgical History History of ankle surgery Family History Other Cancer Coronary artery disease Diabetes Hypertension Stroke Social History Smoking Status: Never smoker alcohol intake: never counseling provided: none substance use type: denies use current occupational status: employed Travel in the last 8 weeks: None household members: none housing: house current occupation: [employer] current occupational exposures/hazards: Yes caffeine: No [facility] Anesthesia Checklist Patient Identification Patient Identification: Verbal (Name & ) Structural Data Admitted From: Home Planned Operative Procedure/s: colonoscopy Consent for Planned Operative Procedure(s) Verified: Yes Additional verifications Anesthesia Reactions: No Hx Blood Transfusions: No Blood Transfusion Reaction: No Airway Assessment Mallampati Score:: Class II C-Spine Mobility Assessed: Yes TMJ Mobility Assessed: Yes Dentition: Good Dentition Neurological Assessment Level of Consciousness: Awake, Alert and Appropriate Anesthesia Plan Anesthesia Risk discussed: Yes Anesthesia Plan: Verified ASA Class: II Anesthesia Type: MAC
--- NOTE | 2024-07-17 09:20 | EXP.ANES.CKL ---
[facility] Disclaimer: The information contained in this section may have been updated after the patient was seen, as this information can be updated by other users. Medical History Hyperlipidemia Hypertension No significant medical problems Surgical History History of ankle surgery Family History Other Cancer Coronary artery disease Diabetes Hypertension Stroke Social History Smoking Status: Never smoker alcohol intake: never counseling provided: none substance use type: denies use current occupational status: employed Travel in the last 8 weeks: None household members: none housing: house current occupation: [employer] current occupational exposures/hazards: Yes caffeine: No [facility] Anesthesia Checklist Patient Identification Patient Identification: Verbal (Name & ) Structural Data Admitted From: Home Planned Operative Procedure/s: colonoscopy Consent for Planned Operative Procedure(s) Verified: Yes NPO Status Verified Time NPO: 00:00 Additional verifications Anesthesia Reactions: No Hx Blood Transfusions: No Blood Transfusion Reaction: No Airway Assessment Mallampati Score:: Class II C-Spine Mobility Assessed: Yes TMJ Mobility Assessed: Yes Dentition: Good Dentition Neurological Assessment Level of Consciousness: Awake, Alert and Appropriate Anesthesia Plan Anesthesia Risk discussed: Yes Anesthesia Plan: Verified ASA Class: I Anesthesia Type: MAC
[2024-07-17 09:55] VITALS: O2SAT 100
--- NOTE | 2024-07-17 10:00 | EXP.HP ---
History of Present Illness *Admission Date: 07/17/24 *Reason for visit:: Screening/family history *History of present illness: Mrs. Magdaleno is a 54-year-old female who is here for initial screening colonoscopy. Her father had colon cancer at the age of 72. The examination is deemed medically necessary for colonoscopy. The patient has been seen, interviewed and examined prior to the procedure by both myself and the anesthesia provider. [facility] Disclaimer: The information contained in this section may have been updated after the patient was seen, as this information can be updated by other users. Medical History (Updated 07/17/24 @ 10:01 by Jimmy Gutierrez II, MD) Hyperlipidemia Hypertension No significant medical problems Surgical History History of ankle surgery Family History Other Cancer Coronary artery disease Diabetes Hypertension Stroke Social History Smoking Status: Never smoker alcohol intake: never counseling provided: none substance use type: denies use current occupational status: employed Travel in the last 8 weeks: None household members: none housing: house current occupation: [employer] current occupational exposures/hazards: Yes caffeine: No Other Medical History Have you received the Flu Vaccine for this season: Yes Have you received the Pneumonia Vaccine: No Review of Systems Review of Systems Review of systems (narrative): Negative *Cardiovascular Comments: Negative *Gastrointestinal Comments: Negative *Genitourinary Comments: Negative *Musculoskeletal Comments: Negative *Neurologic Comments: Negative Meds Home Medications and Allergies Home Medications ?Medication ?Instructions ?Recorded ?Confirmed ?Type atorvastatin 20 mg tablet 20 mg PO DAILY Cholesterol 10/05/17 07/17/24 History hydrochlorothiazide 25 mg tablet 25 mg PO DAILY Hypertension 10/05/17 07/17/24 History New Prescriptions to Start Prescriptions: Allergies Allergy/AdvReac Type Severity Reaction Status Date / Time No Known Allergies Allergy Verified 07/16/24 09:20 Exam Data for Last 24 hours Vital signs and Labs for Last 24 Hours: Temp Pulse Resp BP Pulse Ox O2 Del Method 98.7 F 82 16 148/95 H 100 Room Air 07/17/24 08:59 07/17/24 08:59 07/17/24 08:59 07/17/24 08:59 07/17/24 08:59 07/17/24 08:59 I & O for Last 24 hours: Intake & Output 07/14/24 07/15/24 07/16/24 07/17/24 23:59 23:59 23:59 23:59 Weight 155 lb *Routine HEENT Exam Head: Present normocephalic Eye: Present EOMI and PERRL ENT: Present mucous membranes moist *Routine Neck Exam Neck: Present supple *Routine Respiratory Exam Respiratory: Present CTA bilaterally *Routine Cardiovascular Exam Cardiovascular: Present RRR *Routine Abdominal Exam Abdominal: Present soft and normoactive bowel sounds; Absent tenderness *Routine Rectal Exam Rectal:: deferred *Routine Genitalia Exam Genitalia:: deferred *Routine Extremities Exam Extremities: Absent cyanosis, clubbing or edema *Routine Skin Exam Skin: Present warm; Absent rash *Routine Neurological Exam Neurological: Present alert and oriented X3 Assessment and Plan *Assessment and plan (1) Screening for colon cancer: Status: Acute Category: Medical Code(s): Z12.11 - Encounter for screening for malignant neoplasm of colon (2) Family history of colon cancer in father: Status: Acute Category: Medical Code(s): Z80.0 - Family history of malignant neoplasm of digestive organs Plan A/P: 1. Screening/family history of colon cancer is the preprocedural diagnosis. The patient will be anesthetized/sedated using MAC sedation. The patient has been seen and examined. Cardiac and lung assessment prior to the examination is stable. Proceed with planned colonoscopy
--- NOTE | 2024-07-17 10:01 | HMH.PROCNOTE ---
[facility] Procedure Note Date: 07/17/24 Time: 10:14 Procedure Note:: Colonoscopy Procedure Report: Colonoscopy Endoscopist: Jimmy Gutierrez II, MD Referring physician: Alexx Mo M.D. Date of Procedure: July 17, 2024 Equipment: Olympus 190 variable stiffness pediatric colonoscope Sedation: MAC sedation Indication: Mrs. Magdaleno is a 54-year-old female who is here for initial screening colonoscopy. The patient does state that her father was diagnosed with rectal cancer at the age of 72. She reports no abdominal pain, weight loss, change in her bowel habits or rectal bleeding. Procedure: Prior to the procedure, a history and physical exam was performed, and patient's medications and allergies were reviewed. The risks, benefits and alternatives of the sedation and procedure were discussed with the patient. All questions were answered and informed consent was obtained. The patient was brought to the procedure room. Patient identification and proposed procedure were verified by the physician and the nurse. The patient was placed in a left lateral decubitus position and the scope was passed under direct vision. Throughout the procedure, the patient's blood pressure, pulse, and oxygen saturations were monitored continuously. The colonoscopy was accomplished without difficulty. The patient tolerated the procedure well. Findings: On digital rectal examination there was normal rectal tone. There were no external hemorrhoids. The colonoscope was introduced through the anal canal to the rectum and advanced to the cecum. The ileocecal valve and appendiceal orifice were identified. The scope was advanced a short distance into the ileum which appeared grossly normal. The scope was then withdrawn into the colon. The cecum, ascending, transverse, descending, sigmoid and rectum were grossly normal. There were no mucosal abnormalities identified. Upon retroflexion within the rectum there were grade 1 internal hemorrhoids.The preparation was excellent throughout with Keller Preparation Score of 9. The cecal time was 10 minutes. Impression: 1. Normal colonoscopy with intubation of the terminal ileum Plan: I will recommend repeat surveillance colonoscopy in 10 years. Those persons that constitute having a stronger family history of colorectal cancer are those with a first-degree relative (parent, sibling, or child) diagnosed with colon cancer when they were younger than 60, or if more than one first-degree relative is affected. It is in these persons, that we recommend surveillance colonoscopy every 5 years. Persons that have a first-degree family member greater than 60 years of age at the time of their diagnosis are not deemed to be at greater risk because most colon cancers are sporadic (environmental and other factors) and are not hereditary. Only about 5 to 10 percent of colon cancer is hereditary.
[2024-07-17 10:18] VITALS: BP 108/75; PULSE 72; RESP 18; TEMP 36.3; O2SAT 94
[2024-07-17 10:28] VITALS: BP 116/70; PULSE 64; RESP 18; O2SAT 98
[2024-07-17 10:38] VITALS: BP 115/73; PULSE 81; RESP 18; O2SAT 99
[2024-07-17 11:05] VITALS: BP 125/73; PULSE 75; RESP 18; O2SAT 99
== END 2024-07-17 11:05 | disposition home or self-care (01) ==
PROVIDERS: PCP Internal Medicine Adolescent Medicine; Visit Provider Internal Medicine Gastroenterology
PROC: (CPT 45378; principal; 2024-07-17 10:30)
DX: K64.0 First degree hemorrhoids (principal); Z12.11 Encounter for screening for malignant neoplasm of colon; Z80.0 Family history of malignant neoplasm of digestive organs
CPT/HCPCS: 45378; J7120

== ENCOUNTER 2024-10-25 08:36 | Outpatient (CLI) | payer BC, OTHER, SELFPAY ==
[2024-10-25 09:02] LABS: Basophils # 0.1 K/mm3 (0-0.2); Basophils % 0.8 % (0.1-2.0); Eosinophils # 0.1 K/mm3 (0.0-0.4); Eosinophils % 2.3 % (0.1-12.0); Hematocrit 44.6 % (37.0-47.0); Hemoglobin 14.7 g/dL (12.2-16.2); Lymphocytes # 1.4 K/mm3 (0.7-4.5); Lymphocytes % 23.1 % (10-50); Mean Corpuscular Hemoglobin 28.9 pg (27.0-31.2); Mean Corpuscular Volume 87.6 fl (81-99); Mean Platelet Volume 9.5 fl (7.4-10.4); Monocytes # 0.6 K/mm3 (0.1-1.0); Monocytes % 10.2 % (1.7-9.3); Neutrophils # 3.9 K/mm3 (1.8-7.8); Neutrophils % 63.4 % (37.0-80.0); Platelet Count 293 K/mm3 (142-424); Red Blood Count 5.09 M/mm3 (4.20-5.40); Red Cell Distribution Width 11.9 % (11.5-17.5); White Blood Count 6.2 K/mm3 (4.8-10.8)
[2024-10-25 09:58] LABS: Alanine Aminotransferase 38 U/L (12-78); Albumin Level 4.4 g/dl (3.5-5.0); Albumin/Globulin Ratio 1.7 (1.1-1.8); Alkaline Phosphatase 106 U/L (38-126); Aspartate Amino Transferase 47 U/L (14-36); Bilirubin,Total 0.6 mg/dl (0.2-1.3); Blood Urea Nitrogen 15 mg/dl (7-17); Calcium 9.9 mg/dl (8.4-10.2); Carbon Dioxide 32 mmol/L (22.0-30.0); Chloride 103 mmol/L (98-107); Chol/HDL Ratio 2.7 (1-3.5); Cholesterol 159 mg/dl (140-200); Estimated Glomerular Filt Rate 88 ml/min (>60); GFR (African American) 106 ML/MIN (>60); Globulin 2.6 g/dL (1.3-3.2); Glucose 104 mg/dl (74-100); HDL Cholesterol 60 mg/dl (40-60); Sodium 140 mmol/L (136-145); Triglycerides 60 mg/dl (30-150); VLDL Cholesterol 12 mg/dL (0-40)
[2024-10-25 10:09] LABS: Direct LDL Cholesterol 82.26 mg/dL (100-129)
== END 2024-10-25 23:59 | disposition home or self-care (01) ==
LOC: LAB 08:38
PROVIDERS: Nurse Practitioner Family; PCP Internal Medicine Adolescent Medicine; Visit Provider Internal Medicine Adolescent Medicine
DX: Z00.00 Encounter for general adult medical examination without abnormal findings (principal); I10 Essential (primary) hypertension; E78.5 Hyperlipidemia, unspecified; Z86.2 Personal history of diseases of the blood and blood-forming organs and certain disorders involving the immune mechanism
CPT/HCPCS: 36415; 80053; 80061; 85025

== ENCOUNTER 2025-02-20 08:13 | Outpatient (CLI) | payer BC, OTHER, SELFPAY ==
--- NOTE | 2025-02-20 08:33 | MM_ITS ---
PROCEDURE INFORMATION: Exam: MG Bilateral Screening 3D Mammography Exam date and time: 02/20/2025 8:38 AM Age: 54 years old Clinical indication: Screening examination. Maternal aunt had breast cancer. TECHNIQUE: Imaging protocol: Bilateral Screening tomosynthesis and 2D mammography including computer-aided detection (CAD) when performed. COMPARISON: 1. MG MM DIG SCREENING MAMM BI W/CAD 02/12/2024 8:30 AM 2. MG MM DIG SCREENING MAMM BI W/CAD 07/19/2022 9:46 AM 3. MG MM DIG SCREENING MAMM BI W/CAD 06/07/2021 8:04 AM 4. MG MM DIG SCREENING MAMM BI W/CAD 05/27/2020 9:29 AM FINDINGS: MAMMOGRAPHY: Breast composition: There are scattered areas of fibroglandular density. Mass: None. Architectural distortion: None. Calcifications: No suspicious calcifications. Asymmetric density: None. Skin thickening: None. Axillary adenopathy: None. IMPRESSION: No mammographic evidence of malignancy. Annual screening is recommended unless otherwise clinically indicated. ASSESSMENT: BI-RADS Category 1: Negative.
== END 2025-02-20 23:59 | disposition home or self-care (01) ==
LOC: RAD 08:13
PROVIDERS: PCP Nurse Practitioner Family; Visit Provider Nurse Practitioner Family
DX: Z12.31 Encounter for screening mammogram for malignant neoplasm of breast (principal); Z80.3 Family history of malignant neoplasm of breast
CPT/HCPCS: 77063; 77067